=== PATIENT | male | born 1980 | race Two or more races ===

== ENCOUNTER → 2019-08-17 | Emergency (ER) | payer MEDICAID ==
[~2019-08-17] VITALS: Ht 172.7 cm; Wt 93.0 kg
[~2019-08-17] MED LIST: IBUPROFEN600 M1 ORAL; METFORMIN HCL500 M1 ORAL
[2019-08-17 06:30] VITALS: BP 150/93
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
[2019-08-17 07:21] VITALS: BP 150/93
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
== END | disposition home or self-care (01) ==
LOC: EMR 06:40
DX: S20.212A Contusion of left front wall of thorax, initial encounter (principal); S62.637A Displaced fracture of distal phalanx of left little finger, initial encounter for closed fracture; Y04.2XXA Assault by strike against or bumped into by another person, initial encounter; Y92.9 Unspecified place or not applicable; E11.9 Type 2 diabetes mellitus without complications
CPT/HCPCS: 29130; 71101; 73140; Z7502; 99284